=== PATIENT | female | born 1985 | race Caucasian/White ===

== ENCOUNTER 2017-11-18 23:10 | Emergency (ER) | payer OTHER ==
[~2017-11-18] VITALS: Ht 162.6 cm; Wt 72.6 kg
[~2017-11-18 23:10] MED LIST: BENTYL20 MG PO; K-DUR 20MEQ TA20 MEQ PO; PERCOCET 325 MG1 TA2 PO; PERCOCET 325 MG1 TAB PO; PHENERGAN25 MG PR; PROVENTIL0.09 MG/Ac PO; REGLAN10 MG PO; TRAMADOL50 MG PO; ZOFRAN ODT4 MG SL
[2017-11-18 23:49] LABS: ABSOLUTE BASOPHIL COUNT 0 /CUMM (0.0-0.2); ABSOLUTE EOSINOPHIL COUNT 0 /CUMM (0.0-0.7); ABSOLUTE LYMPH COUNT 1.4 /CUMM (1.2-3.4); ABSOLUTE MONOCYTE COUNT 0.3 /CUMM (0.10-0.60); BASOPHIL % 0.2 % (0.0-2.0); EOSINOPHIL % 0.1 % (0-5); GRANULOCYTE % 87.2 % (42.2-75.2); HEMATOCRIT 43.1 % (37-47); MEAN CORPUSCULAR HGB 27.4 PG (27.0-31.0); MEAN CORPUSCULAR VOLUME 82.8 FL (81.0-99.0); MEAN PLATELET VOLUME 7.9 FL (7.4-10.4); PLATELET COUNT 285 /CUMM (130-400); RBC DISTRIBUTION WIDTH 13.4 % (11.5-14.5)
[2017-11-19 00:09] LABS: WHITE BLOOD CELL COUNT 13.8 /CUMM (4.8-10.8)
--- NOTE | 2017-11-19 00:56 | CT SCAN REPORT ---
EXAMINATION: CT ABDOMEN AND PELVIS WITH CONTRAST CLINICAL INFORMATION: Abdominal pain. Nausea and vomiting. COMPARISON: 04/13/2014 TECHNIQUE: Multidetector volumetric imaging was performed of the abdomen and pelvis following IV administration of 95 mL of Optiray 320 intravenous contrast. Sagittal and coronal reformatted images were obtained on the technologist's workstation. DLP: 362 mGy-cm FINDINGS: LUNG BASES: The visualized lung bases are unremarkable. LIVER, GALLBLADDER, AND BILIARY TREE: The liver is normal in size, shape, and attenuation. No focal hepatic lesion or biliary ductal dilatation is present. Cholecystectomy. PANCREAS: Unremarkable. SPLEEN: Unremarkable. ADRENAL GLANDS: Unremarkable. KIDNEYS AND URETERS: The kidneys are normal in size, shape, and attenuation. No hydronephrosis, hydroureter, or calculi seen. No perinephric stranding. Subcentimeter hypoattenuating lesion at the midpole of the left kidney is too small to fully characterize. BLADDER: Unremarkable. GASTROINTESTINAL TRACT: The stomach is unremarkable. The small bowel is normal in caliber. No obstruction. There is a normal appendix. No colonic wall thickening or inflammatory change. No free air or free fluid. ABDOMINAL WALL: No significant hernia is appreciated. LYMPH NODES: Normal. VASCULAR: Unremarkable. PELVIC VISCERA: The uterus and adnexa are unremarkable. OSSEOUS STRUCTURES: No acute or suspicious osseous abnormality. IMPRESSION: No acute findings of the abdomen or pelvis. No inflammatory changes. Normal appendix.
--- NOTE | 2017-11-19 01:00 | ED GI/GU/ABDOMINAL COMPLAINT ---
History of Present Illness General Chief Complaint: Syncope and Near-Syncope Stated Complaint: SYNCOPE, +N/V Source: patient, family Exam Limitations: no limitations Vital Signs & Intake/Output Vital Signs & Intake/Output Vital Signs Date Time Temp Pulse Resp B/P B/P Pulse O2 O2 Flow FiO2 Mean Ox Delivery Rate 11/19 0051 95 125/60 11/19 0040 Room Air 11/18 2327 97.5 91 32 122/85 95 Room Air Room Air ED Intake and Output 11/19 0000 11/18 1200 Intake Total Output Total Balance Patient 160 lb Weight Allergies Coded Allergies: No Known Allergies (11/19/17) Triage Note: 32YO FEMALETO TRIAGE W/CO ABD PAIN , VOMITING X 2 HRS. FATHER STATES "NEAR SYNCOPAL EPISODE" Triage Nurses Notes Reviewed? yes ? N Is pt currently ? No HPI: 32 yo F PMH Asthma presenting with abdominal pain, N/V. Acute onset epigastric pain starting 2-3 hours ago, constant with flucutuating intensity, sharp, non- radiating, worse with movement or palpation. Associated nausea with 10+ episodes of NBNB emesis. Per patients father she was writhing in pain, seemed listless, near-syncopal episodes x 2 prompting presentation to the ED. On arrival patient complaining of intense ("100/10") epigasrtic pain and actively vomiting. PSH of cholecystectomy. Patient went to a wedding shower this afternoon, had 1-2 alcoholic drinks and some food, no one else who ate the food is sick. Denies fevers, chills, chest pain, SOB, cough or URI Sx, diarrhea, constipation, blood stools, urinary Sx, vaginal discharge or bleeding, headache, neck pain or focal neurologic Sx. (Linda BRITT,Bharat) Reconcile Medications Dicyclomine Hydrochloride (Bentyl) 20 MG TAB 1 TAB PO 4 TIMES/DAY PRN ABDOMINAL CRAMPS Omeprazole Magnesium (Prilosec Otc) 20 MG TABLET.DR 1 TAB PO DAILY stomach pain Ondansetron (Zofran Odt) 4 MG TAB.RAPDIS 1 TAB SL TID PRN nausea OXYCODONE HCL/ACETAMINOPHEN (Percocet 10-325 MG Tablet) 325 MG/10 MG TAB 1 TAB PO Q8 PRN PAIN Oxycodone HCl/Acetaminophen (Percocet 5-325 MG Tablet) 5 MG-325 MG TABLET 1 TAB PO 4XDP PRN PAIN FOUR...[id number] Promethazine Hydrochloride (Phenergan) 25 MG SUP 1 SUP TN TID PRN NAUSEA/ VOMITING (Yaw BRITT,Reji Lott) Past History Travel History Traveled to [place] past 21 day No Medical History Any Pertinent Medical History? see below for history Neurological: NONE EENT: NONE Cardiovascular: NONE Respiratory: asthma Gastrointestinal: NONE Hepatic: NONE Renal: NONE Musculoskeletal: NONE Psychiatric: NONE Endocrine: NONE History of MRSA: No History of VRE: No History of CDIFF: No Surgical History Surgical History: cholecystectomy Psychosocial History Who do you live with Spouse What is your primary language [place]an Tobacco Use: Current Daily Use Daily Tobacco Use Amount/Type: => 5 Cigarettes daily Family History Family History, If Any: MOTHER (Gastroparesis, fibromyalgia). AUNT (gastroparesis, multiple sclerosis). Relation not specified for: FH: multiple sclerosis Fibromyalgia Gastroenteritis Hx Contributory? Yes (Linda BRITT,Bharat) Review of Systems Review of Systems Constitutional: Reports: see HPI. EENTM: Reports: no symptoms. Respiratory: Reports: no symptoms. Cardiovascular: Reports: see HPI. GI: Reports: see HPI. Genitourinary: Reports: see HPI. Musculoskeletal: Reports: no symptoms. Skin: Reports: no symptoms. Neurological/Psychological: Reports: see HPI. Hematologic/Endocrine: Reports: no symptoms. Immunologic/Allergic: Reports: no symptoms. All Other Systems: Reviewed and Negative (Linda BRITT,Bharta) Physical Exam Physical Exam General Appearance: well developed/nourished, moderate distress Head: atraumatic Eyes: Bilateral: PERRL, EOMI. Ears, Nose, Throat, Mouth: hearing grossly normal, moist mucous membrane Neck: normal inspection, full range of motion Respiratory: normal breath sounds, no respiratory distress, lungs clear Gastrointestinal: tenderness Comments: General: Appears uncomfortable, writhing in pain, moderate distress, actively retching Abdomen: Moderate epigastric and RUQ TTP with voluntary guarding, No TTP in bilateral lower abomen or pelvis, No CVA TTP bilaterally Core Measures ACS in differential dx? No Sepsis Present: No Sepsis Focused Exam Completed? No (Linda BRITT,Bharat) Progress Differential Diagnosis: AAA, AMI, appendicitis, biliary colic, bowel obstruction , colon cancer, cholecystitis, diverticulitis, ectopic , endometritis, esophageal varices, gastritis, hepatitis, hernia, hemorrhoids, ischemic bowel, inflamm bowel dis, intrauterine , kidney stone, Olive-Miguel tear, ovarian cyst, ovarian torsion, pancreatitis, PID/cervicitis, peptic ulcer, PUD/ GERD, perforated viscous, SBO, threatened AB, UTI/pyelo Plan of Care: Orders Procedure Date/time Status URINALYSIS 11/19 44 Complete LIPASE 11/18 2334 Complete HEPATIC FUNCTION PANEL 11/18 2334 Complete HUMAN BETA HCG SCREEN 11/18 2334 Complete CBC WITHOUT DIFFERENTIAL 11/18 2334 Complete BASIC METABOLIC PANEL 11/18 2334 Complete AMYLASE 11/18 2334 Complete EKG 11/18 2334 Active Current Medications Sig/Loren Start time Last Medication Dose Stop Time Status Admin Morphine Sulfate 6 MG ONCE ONE 11/19 314 UNVr (Morphine) 11/20 315 Pantoprazole Sodium 40 MG ONCE ONE 11/19 314 UNVr (Protonix) 11/20 315 Laboratory Tests 11/19/17 0114: Urine Color PINK H, Urine Clarity CLEAR, Urine pH 7.0, Ur Specific [place] 1.010, Urine Protein NEG, Urine Ketones TRACE H, Urine Nitrite NEG, Urine Bilirubin NEG, Urine Urobilinogen 0.2, Ur Leukocyte Esterase NEG, Ur Microscopic SEDIMENT EXAMINED, Urine RBC 25-50 H, Urine WBC RARE, Ur Epithelial Cells MOD H, Urine Bacteria MOD H, Urine Hemoglobin LARGE H, Urine Glucose NEG 11/18/17 2342: Anion Gap 21 H, Estimated GFR > 60, BUN/Creatinine Ratio 15.0, Glucose 126 H, Calcium 10.0, Total Bilirubin 0.6, Direct Bilirubin 0.2, AST 21, ALT 19, Alkaline Phosphatase 97, Total Protein 8.0, Albumin 5.5 H, Amylase 61, Lipase 138, Total Beta HCG NEGATIVE, CBC w Diff NO MAN DIFF REQ, RBC 5.20, MCV 82.8, MCH 27.4, MCHC 33.0, RDW 13.4, MPV 7.9, Gran % 87.2 H, Lymphocytes % 10.0 L, Monocytes % 2.5, Eosinophils % 0.1, Basophils % 0.2, Absolute Granulocytes 12.0 H, Absolute Lymphocytes 1.4, Absolute Monocytes 0.3, Absolute Eosinophils 0, Absolute Basophils 0 Physician MDM: 32 yo F PMH Asthma presenting with abdominal pain, N/V. VSS, HR 90s, BP stable, abdominal exam as above. DDx: Early appendicitis, Colitis, Gastroenteritis, less likely ovarian pathology, consider or ruptured ectopic. ECG sinus rhythm, non-ischemic. 2L NS, zofran and morphine given with mild improvement in pain. CBC with leukocytosis to 13.8. CMP with AG to 21, low HCO3 at 17, hyperchloremia and hypernatremia. B-hCG negative. On re-examination patient continues to writhe in pain, retching C/O ongoing pain and nausea, repeat zofran and morphine given. CT abdomen pelvis without acute intrabdominal pathology. UA pending. Signed out, dispo pending remainder of ED work-up and re- evaluation. Initial ED EKG: NSR (Linda BRITT,Bharat) Diagnostic Imaging: Viewed by Me: CT Scan. Discussed w/RAD: CT Scan. Radiology Impression: PATIENT: HILDA TONG PRESENT AGE: 32 PATIENT ACCOUNT NO: [id number] : 86 LOCATION: [facility] ORDERING PHYSICIAN: Bharat Mckeon MD SERVICE DATE: 11/19/17 EXAM TYPE : CAT - CT ABD & PELVIS W IV CONTRAST EXAMINATION: CT ABDOMEN AND PELVIS WITH CONTRAST CLINICAL INFORMATION: Abdominal pain. Nausea and vomiting. COMPARISON: 04/13/2014 TECHNIQUE: Multidetector volumetric imaging was performed of the abdomen and pelvis following IV administration of 95 mL of Optiray 320 intravenous contrast. Sagittal and coronal reformatted images were obtained on the technologist's workstation. DLP: 362 mGy-cm FINDINGS: LUNG BASES: The visualized lung bases are unremarkable. LIVER, GALLBLADDER, AND BILIARY TREE: The liver is normal in size, shape, and attenuation. No focal hepatic lesion or biliary ductal dilatation is present. Cholecystectomy. PANCREAS: Unremarkable. SPLEEN: Unremarkable. ADRENAL GLANDS: Unremarkable. KIDNEYS AND URETERS: The kidneys are normal in size, shape, and attenuation. No hydronephrosis, hydroureter, or calculi seen. No perinephric stranding. Subcentimeter hypoattenuating lesion at the midpole of the left kidney is too small to fully characterize. BLADDER: Unremarkable. GASTROINTESTINAL TRACT: The stomach is unremarkable. The small bowel is normal in caliber. No obstruction. There is a normal appendix. No colonic wall thickening or inflammatory change. No free air or free fluid. ABDOMINAL WALL: No significant hernia is appreciated. LYMPH NODES : Normal. VASCULAR: Unremarkable. PELVIC VISCERA: The uterus and adnexa are unremarkable. OSSEOUS STRUCTURES: No acute or suspicious osseous abnormality. IMPRESSION: No acute findings of the abdomen or pelvis. No inflammatory changes. Normal appendix. DICTATED BY: Flo Olivo MD DATE/TIME DICTATED:11/19/1747 RADIUS CORNER MACHINE OPERATOR:HELIO DATE/TIME TRANSCRIBED:11/19/1747 CONFIDENTIAL, DO NOT COPY WITHOUT APPROPRIATE AUTHORIZATION. <Electronically signed in Other Vendor System> SIGNED BY: Flo Olivo MD 11/19/17 0056 (Yaw BRITT,Reji Lott) Departure Departure Disposition: HOME OR SELF CARE Condition: Stable Clinical Impression Primary Impression: Abdominal pain Referrals: Patient Has No Primary Care Dr (PCP/Family) Departure Forms: Customer Survey General Discharge Information (Linda BRITT,Bharat) Departure Prescriptions: Current Visit Scripts Ondansetron (Zofran Odt) 1 TAB SL TID PRN nausea #10 TAB Omeprazole Magnesium (Prilosec Otc) 1 TAB PO DAILY #30 TAB Oxycodone HCl/Acetaminophen (Percocet 5-325 MG Tablet) 1 TAB PO 4XDP PRN PAIN #4 TAB FOUR...[id number] Comments 11/19/17, 3:14AM.... Resident Co-Sign Statement Statement: ED Attending supervision documentation- [x] I saw and evaluated the patient. I have also reviewed all the pertinent lab results and diagnostic results. I agree with the findings and the plan of care as documented in the Resident's documentation. 11/19/17, 3:15am... pt with mid epigastric tenderness to palpation, without rebound or guarding... benign labs/ct scan... pt given protonix iv, gi cocktail, short course of percocet given her discomfort, close follow up advised. [] I have reviewed the ED Record and agree with the Resident's documentation. [] Additions or exceptions (if any) to the Resident's note and plan are summarized below: [] (Yaw BRITT,Reji Lott)
[2017-11-19] MEDS ORDERED: ZOFRAN ODT4 M1 SL (01:31)
[2017-11-19] MEDS ORDERED: PRILOSEC OTC20 M1 PO (01:31)
[2017-11-19] MEDS ORDERED: PERCOCET 5-3251 EACH PO (03:13)
[2017-11-19 04:22] VITALS: BP 103/63
== END 2017-11-19 04:53 ==
LOC: ERH 23:10
PROVIDERS: Pediatrics
DX: R10.13 Epigastric pain (principal); R10.11 Right upper quadrant pain
CPT/HCPCS: 74177; 81001; 93005; 93010; 96361; 96374; 96375; 96376; J1885; J2405